=== PATIENT | male | born 1960 | race Caucasian/White ===

== ENCOUNTER 2023-10-14 19:50 | Emergency (ER) | payer MEDICARE, SELFPAY ==
[2023-10-14] VITALS (9 sets, daily range): BP systolic 111–143; BP diastolic 73–93; PULSE 72–90; RESP 14–22; TEMP 36.3; O2SAT 96–99; BMI 24.4
--- NOTE | 2023-10-14 | CT_ITS ---
The [address] [address] Patient Name: ALFONSO FREY MRN: [id number] date: 1960 Sex: M Assigned Patient Location: ER Current Patient Location: ER Accession/Order Number: [id number] Exam Date: 10/14/2023 21:05 Report Date: 10/14/2023 21:51 At the request of: AMY REIS Procedure: CT cervical spine wo con CT CERVICAL SPINE WITHOUT IV CONTRAST. INDICATION: Fall. COMPARISON: There are no prior studies available for comparison. TECHNIQUE: CT of the cervical spine without contrast. Orthogonal sagittal and coronal multiplanar reformatted images were created. . FINDINGS: BONY ALIGNMENT: There is normal cervical lordosis. No spondylolisthesis. VERTEBRAL BODY: Intact anterior fusion hardware. No acute fracture of the cervical spine. Intervertebral disc spaces are intact. Status post multilevel posterior decompression. CENTRAL CANAL/NEURAL FORAMINA: No high-grade central canal or neuroforaminal stenosis. SOFT TISSUE: No mass or inflammation. UPPER LUNGS: No acute findings. CT/CT cervical spine wo con IMPRESSION: No acute cervical spinal fracture. Electronically authenticated by: MABEL SPEAR Date: 10/14/2023 21:51
--- NOTE | 2023-10-14 | CT_ITS ---
The [address] [address] Patient Name: ALFONSO FREY MRN: [id number] date: 1960 Sex: M Assigned Patient Location: ER Current Patient Location: ED.MAIN Accession/Order Number: [id number] Exam Date: 10/14/2023 21:05 Report Date: 10/14/2023 21:48 At the request of: AMY REIS Procedure: CT head/brain wo con CT HEAD WITHOUT CONTRAST. INDICATION: Fall. COMPARISON: None available for comparison TECHNIQUE: Axial CT head images from the skull base to the vertex without IV contrast were acquired. Coronal and sagittal reformats were also obtained. FINDINGS: EXTRA-AXIAL SPACE: Age-appropriate ventricles. No acute extra-axial collection. No extra-axial mass. No midline shift. CEREBRUM: No focal abnormality. No CT evidence of acute large territorial cortical infarct, hemorrhage or mass effect. CEREBELLUM: No focal abnormality. No CT evidence of acute infarct, hemorrhage or mass effect. BRAINSTEM: No focal abnormality. No CT evidence of acute infarct, hemorrhage or mass effect. EXTRACRANIAL STRUCTURES. The paranasal sinuses are clear. Mastoid air cells are clear. Orbits are unremarkable. No discrete pituitary mass. Intact calvarium. CT/CT head/brain wo con IMPRESSION: No acute intracranial abnormality. Electronically authenticated by: MABEL SPEAR Date: 10/14/2023 21:48
--- NOTE | 2023-10-14 19:52 | ECG_ITS ---
The [facility] Test Date: 2023-10-14 Pat Name: ALFONSO FREY Department: Room: - Gender: Male [employer]: : 1960 Requested By: [id number] Order Number: [id number] Reading MD: SAMANTHA PAYAN Measurements Intervals [place] Rate: 89 P: 96 OR: 134 QRS: -46 QRSD: 94 T: 25 QT: 392 QTc: 439 Interpretive Statements 1100 Sinus rhythm 2440 Incomplete right bundle branch block 2630 Left anterior fascicular block 9150 abnormal ECG No previous ECG available for comparison Electronically Signed On 10-16-2023 17:32:21 EST by SAMANTHA PAYAN
--- NOTE | 2023-10-14 19:53 | ED_ITS ---
HPI - General Adult General Chief complaint: Seizure Stated complaint: SEIZURE Time Seen by Provider: 10/14/23 19:51 History of Present Illness HPI narrative: 63-year-old male presents to the emergency department after apparently falling down some steps. He may have had a seizure. He has a history of seizures and is on Keppra and Lamictal and Ativan. He doesn't remember what happened but friends found him at the bottom of some stairs and he had some blood on his face. To the paramedics he complained of headache and neck pain. He doesn't complain of chest pain shortness breath or abdominal pain or any extremity pain. This happened just before coming into the emergency department. Related Data Allergies Allergy/AdvReac Type Severity Reaction Status Date / Time No Known Drug Allergies Allergy Verified 10/14/23 19:56 Review of Systems ROS Narrative A ten point review of systems is negative except as noted above. Exam Narrative Exam Narrative: Nurses note and vital signs reviewed and patient is not hypoxic. General: The patient appears in no apparent distress. Patient has cervical collar in place. Skin: Warm, dry, no pallor noted. There is no rash noted. Head: Normocephalic Eye: Normal conjunctiva, no drainage Ears, Nose, Mouth, and Throat: oral mucosa is moist. Nares patent. some dried blood is present on his face. Cardiovascular: Regular Rate and Rhythm Respiratory: Patient is in no distress, no accessory muscle use, lungs are clear to auscultation, no wheezing, rales or rhonchi, chest wall not tender, no crepitus Back: non-tender GI: no tenderness to palpation, no masses appreciated. No rebound, guarding, or rigidity noted. Musculoskeletal: The patient has no evidence of calf tenderness, no pitting edema, symmetrical pulses noted bilaterally; palpation of all four extremities shows no tenderness and all joints have full range of motion. Neurological: A&O x4, normal speech Psychiatric: Cooperative Constitutional Vital Signs, click to edit/add: Last Vital Signs Temp 97.3 F L 10/14/23 19:53 Pulse 72 10/14/23 22:57 Resp 14 10/14/23 22:57 BP 143/90 H 10/14/23 22:57 Pulse Ox 96 10/14/23 22:57 O2 Del Method Room Air 10/14/23 22:57 Course Vital Signs Vital signs: Vital Signs Blood Pressure 135/93 H 10/14/23 19:51 Temperature 97.3 F L 10/14/23 19:53 Pulse Rate 72 10/14/23 22:57 Respiratory Rate 14 10/14/23 22:57 Blood Pressure 143/90 H 10/14/23 22:57 Pulse Oximetry 96 10/14/23 22:57 Oxygen Delivery Method Room Air 10/14/23 22:57 Medical Decision Making MDM Narrative Medical decision making narrative: CAT scans of head and neck are negative. Laceration has been repaired. Due to its depth sutures are to be removed in seven days. Differential Diagnosis Differential Diagnosis: seizure, intercranial hemorrhage, cervical spine fracture Lab Data Lab results reviewed: Yes I reviewed the patient's lab results Labs: Lab Results 10/14/23 Range/Units 20:59 WBC 8.0 (4.0-11.0) 10^3/uL RBC 4.68 L (4.70-6.10) 10^6/uL Hgb 14.9 (14.0-18.0) g/dL Hct 44.5 (42.0-54.0) % MCV 95.1 H (80.0-94.0) fL MCH 31.8 (25.9-34.0) pg MCHC 33.5 (29.9-35.2) g/dL RDW 12.7 (11.0-15.0) % Plt Count 184 (150-450) 10^3/uL MPV 10.1 (9.5-13.5) fL Neut % (Auto) 63.8 (43.0-75.0) % Lymph % (Auto) 21.8 (20.5-60.0) % [place] % (Auto) 10.1 (1.7-12.0) % Eos % (Auto) 3.0 (0.9-7.0) % Baso % (Auto) 0.8 (0.2-2.0) % Neut # (Auto) 5.1 (1.4-6.5) 10^3/uL Lymph # (Auto) 1.7 (1.2-3.8) 10^3/uL [place] # (Auto) 0.8 (0.3-0.8) 10^3/uL Eos # (Auto) 0.2 (0.0-0.7) 10^3/uL Baso # (Auto) 0.1 (0.0-0.1) 10^3/uL Abs Immat Gran (auto) 0.04 H (0.00-0.03) 10^3/uL Imm/Tot Granulo (auto) 0.5 (0.0-0.5) % Sodium 142 (136-145) mmol/L Potassium 3.6 (3.5-5.1) mmol/L Chloride 107 (98-107) mmol/L Carbon Dioxide 26.4 (21.0-32.0) mmol/L Anion Gap 12.2 BUN 6.0 L (7.0-18.0) mg/dL Creatinine 0.97 (0.70-1.30) mg/dL Est GFR ( Amer) >60 (>=60) Est GFR (Non-Af Amer) >60 (>=60) BUN/Creatinine Ratio 6.2 Glucose 118 H (74-106) mg/dL Calcium 9.4 (8.5-10.1) mg/dL Ethanol Quant <3 mg/dL Imaging Data . CT C-spine, CT brain: Radiologist's impression: Procedure: CT cervical spine wo con CT CERVICAL SPINE WITHOUT IV CONTRAST. INDICATION: Fall. COMPARISON: There are no prior studies available for comparison. TECHNIQUE: CT of the cervical spine without contrast. Orthogonal sagittal and coronal multiplanar reformatted images were created. . FINDINGS: BONY ALIGNMENT: There is normal cervical lordosis. No spondylolisthesis. VERTEBRAL BODY: Intact anterior fusion hardware. No acute fracture of the cervical spine. Intervertebral disc spaces are intact. Status post multilevel posterior decompression. CENTRAL CANAL/NEURAL FORAMINA: No high-grade central canal or neuroforaminal stenosis. SOFT TISSUE: No mass or inflammation. UPPER LUNGS: No acute findings. IMPRESSION: No acute cervical spinal fracture. Electronically authenticated by: MABEL SPEAR Date: 10/14/2023 21:51 Procedure: CT head/brain wo con CT HEAD WITHOUT CONTRAST. INDICATION: Fall. COMPARISON: None available for comparison TECHNIQUE: Axial CT head images from the skull base to the vertex without IV contrast were acquired. Coronal and sagittal reformats were also obtained. FINDINGS: EXTRA-AXIAL SPACE: Age-appropriate ventricles. No acute extra-axial collection. No extra-axial mass. No midline shift. CEREBRUM: No focal abnormality. No CT evidence of acute large territorial cortical infarct, hemorrhage or mass effect. CEREBELLUM: No focal abnormality. No CT evidence of acute infarct, hemorrhage or mass effect. BRAINSTEM: No focal abnormality. No CT evidence of acute infarct, hemorrhage or mass effect. EXTRACRANIAL STRUCTURES. The paranasal sinuses are clear. Mastoid air cells are clear. Orbits are unremarkable. No discrete pituitary mass. Intact calvarium. IMPRESSION: No acute intracranial abnormality. Electronically authenticated by: MABEL SPEAR Date: 10/14/2023 21:48 ECG Data Attestation: I personally reviewed and interpreted this ECG as follows: (EKG on my interpretation shows sinus rhythm with a rate of 89 and artifact present.) Discharge Plan Discharge Chief Complaint: Seizure Clinical Impression: Generalized seizure, Laceration of lip Patient Disposition: Home, Self-Care Time of Disposition Decision: 23:15 Condition: Good Mode of Transportation: Private Vehicle Instructions: Recurrent Seizures in Adults (ED), Facial Laceration (ED) Additional Instructions: External sutures to be removed in seven days Stand Alone Forms: Portal Instructions Referrals: Shireen Short NP [Primary Care Provider] - 1 week
[2023-10-14 21:09] LABS: Basophils Absolute Auto 0.1 10^3/uL (0.0-0.1); Basophils Percent Auto 0.8 % (0.2-2.0); Eosinophils Absolute Auto 0.2 10^3/uL (0.0-0.7); Hematocrit 44.5 % (42.0-54.0); Hemoglobin 14.9 g/dL (14.0-18.0); Immature Granulocytes Abs Auto 0.04 10^3/uL (0.00-0.03); Immature Granulocytes Pct Auto 0.5 % (0.0-0.5); Lymphocytes Absolute Auto 1.7 10^3/uL (1.2-3.8); Lymphocytes Percent Auto 21.8 % (20.5-60.0); Mean Corpuscular HGB Conc 33.5 g/dL (29.9-35.2); Mean Corpuscular Hemoglobin 31.8 pg (25.9-34.0); Mean Corpuscular Volume 95.1 fL (80.0-94.0); Mean Platelet Volume 10.1 fL (9.5-13.5); Monocytes Absolute Auto 0.8 10^3/uL (0.3-0.8); Monocytes Percent Auto 10.1 % (1.7-12.0); Neutrophils Absolute Auto 5.1 10^3/uL (1.4-6.5); Neutrophils Percent Auto 63.8 % (43.0-75.0); Platelet Count 184 10^3/uL (150-450); Red Blood Count 4.68 10^6/uL (4.70-6.10); Red Cell Distribution Width 12.7 % (11.0-15.0)
[2023-10-14 21:17] LABS: Anion Gap 12.2; BUN Creatinine Ratio 6.2; Calcium 9.4 mg/dL (8.5-10.1); Carbon Dioxide 26.4 mmol/L (21.0-32.0); Chloride 107 mmol/L (98-107); Estimated GFR (African America >60 (>=60); Estimated GFR (Non-African Ame >60 (>=60); Ethanol <3 mg/dL; Glucose 118 mg/dL (74-106); Potassium 3.6 mmol/L (3.5-5.1); Sodium 142 mmol/L (136-145)
[2023-10-14] MEDS: LIDOCAINE HCL 1% 100 MG/10 ML MDV INJ (22:35)
--- NOTE | 2023-10-14 23:11 | PC.NURSE ---
22:14 at [facility] side. C-coller removed. Patient then moved to room 5 to suture lip. 2 sutures outside and 2 sutures inside placed. 22:57 returned to room 8
== END 2023-10-14 23:29 | disposition home or self-care (01) ==
PROVIDERS: Emergency Provider Emergency Medicine; PCP Nurse Practitioner Family
DX: S01.511A Laceration without foreign body of lip, initial encounter (principal); W10.8XXA Fall (on) (from) other stairs and steps, initial encounter; G40.89 Other seizures; Z79.899 Other long term (current) drug therapy; R51.9 Headache, unspecified; M54.2 Cervicalgia
CPT/HCPCS: 12011; 36415; 70450; 72125; 80048; 80320; 85025; 93005; 99285